=== PATIENT | male | born 1995 | race Caucasian/White ===

== ENCOUNTER 2023-01-21 06:35 | Day surgery (SDC) | payer OTHER, MEDICARE, MEDICAID ==
[~2023-01-21] VITALS: Ht 177.8 cm; Wt 68.2 kg
[~2023-01-21 06:35] MED LIST: RINGERS SOLUTION,LACTATED 1,000 ML IV ONE
[2023-01-21] MEDS ORDERED: CHOL500013 PO (07:03)
[2023-01-21] MEDS ORDERED: QUET100T PO (07:03)
[2023-01-21] MEDS ORDERED: FLUO20CA36 PO (07:03)
[2023-01-21] MEDS ORDERED: GABA-1201 PO (07:03)
[2023-01-21 07:34] LABS: BASOPHILS % (AUTO) 0.6 % (0.0-2.0); EOSINOPHILS % (AUTO) 3.9 % (1.0-6.0); HEMATOCRIT 41.8 % (41-53); HEMOGLOBIN 14.8 g/dL (13.5-17.5); LYMPHOCYTES # (AUTO) 1.3 K/uL (1.0-4.8); LYMPHOCYTES % (AUTO) 41.2 % (22.0-44.0); MEAN CORPUSCULAR HGB CONC 35.5 G/dL (31.0-37.0); MEAN CORPUSCULAR VOLUME 90 fL (80-100); MONOCYTES # (AUTO) 0.5 K/uL (0.1-1.0); MONOCYTES % (AUTO) 15.4 % (2.0-9.0); NEUTROPHILS # (AUTO) 1.3 K/uL (1.8-7.7); NEUTROPHILS % (AUTO) 38.9 % (40.0-70.0); PLATELET COUNT (AUTO) 167 K/uL (150-450); RED BLOOD CELL COUNT(AUTO) 4.64 MIL/uL (4.50-5.90); RED CELL DISTRIBUTION WIDTH 12.9 % (11.5-14.5)
[2023-01-21 07:47] LABS: ANION GAP 3 mmol/L (8-16); CARBON DIOXIDE 31 mmol/L (22-29); CHLORIDE 104 mmol/L (98-107); CREATININE 0.86 mg/dL (0.60-1.30); GLOMERULAR FILTR. RATE CALC > 60 mL/min (>60); GLUCOSE,RANDOM 82 mg/dL (70-110); INR 1.1 (0.9-1.1); POTASSIUM 3.7 mmol/L (3.5-5.1); SODIUM SERUM 138 mmol/L (136-145); UREA NITROGEN, BLOOD 15 mg/dL (7-18)
[2023-01-21 07:53] LABS: ALANINE AMINOTRANSFERASE 29 U/L (12-78); ALBUMIN 4.3 g/dL (3.4-5.0); ALKALINE PHOSPHATASE 94 U/L (46-116); ASPARTATE AMINOTRANSFERASE 18 U/L (15-37); BILIRUBIN,TOTAL 0.5 mg/dL (0.1-1.0); TOTAL PROTEIN, SERUM 7.5 g/dL (6.4-8.2)
[2023-01-21] MEDS ORDERED: AMPICILLIN SODIUM 2 GM/NS 100 ML IV ONE (08:18)
[2023-01-21] MEDS ORDERED: SUGAMMADEX SODIUM 200 MG/2 ML VIAL IVP ONE (11:38)
[2023-01-21] MEDS ORDERED: ROCURONIUM BROMIDE 10 MG/ML 5 ML VIAL IVP ONE (12:00)
[2023-01-21] MEDS ORDERED: PROPOFOL 1% 20 ML VIAL IVP ONE (12:00)
[2023-01-21] MEDS ORDERED: MIDAZOLAM HCL 2 MG/2 ML VIAL IVP ONE (12:00)
[2023-01-21] MEDS ORDERED: FentaNYL CITRATE PF 100 MCG/2 ML VIAL IVP ONE (12:00)
[2023-01-21] MEDS ORDERED: ONDANSETRON HCL 4 MG/2 ML VIAL IVP ONE (12:00)
[2023-01-21] MEDS ORDERED: LIDOCAINE/PF 2% 5 ML VIAL IM ONE (12:00)
[2023-01-21] MEDS ORDERED: DEXAMETHASONE SOD PHOS 4 MG/ML VIAL IVP ONE (12:00)
== END 2023-01-21 13:55 | disposition home or self-care (01) ==
LOC: SURGERY 06:35
PROVIDERS: ATTEND Dentist General Practice
DX: K05.30 Chronic periodontitis, unspecified (principal); K02.9 Dental caries, unspecified; K03.6 Deposits [accretions] on teeth; Z79.01 Long term (current) use of anticoagulants; Z79.899 Other long term (current) drug therapy; F32.A Depression, unspecified; G40.909 Epilepsy, unspecified, not intractable, without status epilepticus
CPT/HCPCS: 41899; 71045; 80053; 85025; 85610; 85730; 36415; 93005; J0290; J2704; J1100; J3010; J3490 ×2; J2250; J2405; Q9967; J7120